=== PATIENT | female | born 1960 | race Two or more races ===

== ENCOUNTER 2024-09-08 18:38 | Emergency (ER) | payer OTHER ==
[~2024-09-08] VITALS: Ht 154.9 cm; Wt 71.2 kg
[2024-09-08] MEDS ORDERED: FAMOTIDINE/PF 20 MG in 0.9 % SODIUM CHLORIDE 8 ML IV PUSH STA (19:51)
[2024-09-08] MEDS ORDERED: MORPHINE SULFATE 4 MG/ML VIAL IV ONE (20:00)
[2024-09-08] MEDS ORDERED: 0.9 % SODIUM CHLORIDE 1,000 ML IV SCH (20:00)
[2024-09-08] MEDS ORDERED: FAMOTIDINE/PF 20 MG/2 ML VIAL ONE (20:04)
[2024-09-08 20:38] LABS: HEMATOCRIT 42.2 % (36.0-45.00); HEMOGLOBIN 14.2 g/dL (12.0-15.00); MEAN CELL VOLUME 85.9 fL (80.00-100.00); MEAN CORPUSCULAR HGB CONC 33.7 g/dl (32.0-36.0); PLATELET COUNT 243 K/uL (150-450); RED BLOOD COUNT 4.91 M/uL (4.00-6.00)
[2024-09-08 21:08] LABS: ALBUMIN 3.8 gm/dL (3.4-5.0); BILIRUBIN TOTAL 0.38 mg/dL (0.3-1.2); CALCIUM 9.5 mg/dL (8.5-10.1); CREATININE SERUM 0.76 mg/dL (0.55-1.02); GFR 76.86; GLOBULINA 4.3 G/DL (2.4-3.5); POTASSIUM 4.03 mEq/L (3.5-5.1); TOTAL PROTEIN 8.1 gm/dL (6.4-8.2)
[2024-09-08 21:41] LABS: ob POSITIVE (NEGATIVE)
[2024-09-08] MEDS ORDERED: PIPERACILLIN/TAZOBACTAM SODIUM 3.375 GM VIAL IV ONE ×2 (22:30)
[2024-09-08] MEDS ORDERED: CIPRO500 MG PO (22:49)
[2024-09-08] MEDS ORDERED: LEVSIN/SL0.125 MG SL (22:49)
[2024-09-08] MEDS ORDERED: METRONIDAZOLE500 MG PO (22:49)
[2024-09-08] MEDS ORDERED: PROTONIX40 MG PO (22:49)
[2024-09-08] MEDS ORDERED: INTESTINEX680 M1 PO (22:49)
== END 2024-09-08 23:16 | disposition home or self-care (01) ==
LOC: ER 18:41
PROVIDERS: General Practice
DX: K57.32 Diverticulitis of large intestine without perforation or abscess without bleeding (principal); R10.31 Right lower quadrant pain; K92.1 Melena